=== PATIENT | male | born 1960 | race Caucasian/White ===

== ENCOUNTER → 2020-03-19 | Outpatient (REF) | payer OTHER | LOC: M LAB REF 13:16 | PROVIDERS: ATTEND Specialist | DX: D23.39 Other benign neoplasm of skin of other parts of face (principal) ==

== ENCOUNTER → 2022-10-05 | Outpatient (CLI) | payer OTHER | LOC: M PLAIMG 11:19 | PROVIDERS: ATTEND Nurse Practitioner Family | DX: M54.50 Low back pain, unspecified (principal); M25.561 Pain in right knee ==

== ENCOUNTER → 2022-10-14 | Outpatient (REF) | LOC: M PLAIMG 10:38 | PROVIDERS: ATTEND Internal Medicine | DX: M25.562 Pain in left knee (principal) ==

== ENCOUNTER 2023-01-14 13:34 | Emergency (ER) | payer OTHER ==
[~2023-01-14] VITALS: Ht 177.8 cm; Wt 110.8 kg
[2023-01-14] MEDS ORDERED: NAPR-837 PO (13:52)
[2023-01-14] MEDS ORDERED: LORA-674 PO (13:52)
[2023-01-14] MEDS ORDERED: LOSA-532 PO (13:52)
[2023-01-14] MEDS ORDERED: ATOR1TAB21 PO (13:52)
[2023-01-14] MEDS ORDERED: ACET-897 PO (16:42)
[2023-01-14 16:58] VITALS: BP 141/65
== END 2023-01-14 17:01 | disposition home or self-care (01) ==
LOC: M ED 13:34
DX: M79.605 Pain in left leg (principal); M25.462 Effusion, left knee; Z79.02 Long term (current) use of antithrombotics/antiplatelets; Z79.899 Other long term (current) drug therapy

== ENCOUNTER → 2024-03-29 | Outpatient (CLI) | payer OTHER ==
[~2024-03-29] MED LIST: ACET-897 PO; ATOR1TAB21 PO; LORA-1041 PO; LOSA-532 PO; NAPR-837 PO
== END ==
LOC: M SLEEP 20:00
PROVIDERS: ATTEND Family Medicine
DX: G47.33 Obstructive sleep apnea (adult) (pediatric) (principal)

== ENCOUNTER → 2024-08-13 | Outpatient (CLI) | payer OTHER | LOC: M SLEEP 20:00 | PROVIDERS: ATTEND Family Medicine | DX: G47.33 Obstructive sleep apnea (adult) (pediatric) (principal) ==

== ENCOUNTER → 2025-08-11 | Outpatient (CLI) | payer OTHER ==
[2025-08-11 09:23] LABS: PLATELET COUNT, AUTOMATED 232 10^3/uL (150-450)
[2025-08-11 09:49] LABS: INR 0.97
[2025-08-11 09:55] LABS: ALT/SGPT 34 U/L (7.0-40); AST/SGOT 28 U/L (<34); CALCIUM LEVEL 8.8 MG/DL (8.3-10.6); CARBON DIOXIDE LEVEL 30 MMOL/L (20-31); CHLORIDE LEVEL 103 MMOL/L (98-107); CREATININE FOR GFR 0.76 MG/DL (0.70-1.30); GLOMERULAR FILTRATION RATE > 90.0 (>49); POTASSIUM SERUM 4.0 MMOL/L (3.5-5.1); SODIUM LEVEL 144 MMOL/L (136-145)
== END ==
LOC: M RAD 08:15
PROVIDERS: ATTEND Orthopaedic Surgery
DX: Z01.812 Encounter for preprocedural laboratory examination (principal); M17.12 Unilateral primary osteoarthritis, left knee; R94.31 Abnormal electrocardiogram [ECG] [EKG]